=== PATIENT | male | born 1980 | race Caucasian/White ===

== ENCOUNTER 2020-10-08 14:05 | Emergency (ER) | payer SELFPAY ==
[~2020-10-08] VITALS: Ht 188 cm; Wt 100.0 kg
[~2020-10-08 14:05] MED LIST: LORA-1000 PO
[2020-10-08 14:21] VITALS: BP 129/69
== END 2020-10-08 15:04 | disposition home or self-care (01) ==
LOC: EMS 14:05
DX: F41.9 Anxiety disorder, unspecified (principal); F17.210 Nicotine dependence, cigarettes, uncomplicated
CPT/HCPCS: 99283

== ENCOUNTER 2020-10-23 19:51 | Emergency (ER) | payer SELFPAY | END 2020-10-23 22:59 | disposition left against medical advice (07) | LOC: EMS 19:59 | DX: F41.9 Anxiety disorder, unspecified (principal); Z53.21 Procedure and treatment not carried out due to patient leaving prior to being seen by health care provider ==

== ENCOUNTER 2020-10-23 21:11 | Emergency (ER) | payer SELFPAY ==
[~2020-10-23] VITALS: Ht 188 cm; Wt 100.0 kg
[2020-10-23 21:12] VITALS: BP 158/105
== END 2020-10-23 23:14 | disposition left against medical advice (07) ==
LOC: EMS 21:33
DX: F41.9 Anxiety disorder, unspecified (principal); Z53.21 Procedure and treatment not carried out due to patient leaving prior to being seen by health care provider
CPT/HCPCS: 93005